=== PATIENT | female | born 1985 | race Caucasian/White ===

== ENCOUNTER 2020-09-02 21:59 | Emergency (ER) | payer SELFPAY ==
[~2020-09-02] VITALS: Ht 170.2 cm; Wt 66.7 kg
[2020-09-02 22:12] LABS: *BILIRUBIN,URIN 1+ (NEGATIVE); *BLOOD, URINE NEGATIVE (NEGATIVE); *CLARITY,URINE SLIGHTLY CLOUDY (CLEAR); *COLOR,URINE YELLOW (YELLOW); *KETONES,URINE TRACE (NEGATIVE); LEUKOCYTE ESTERASE ,URINE NEGATIVE (NEGATIVE); NITRITE, URINE NEGATIVE (NEGATIVE); PH,URINE 8.5 (5.0-8.0); UGLUCOSE NEGATIVE (NEGATIVE)
[2020-09-02 22:13] LABS: *URINE HCG, QUAL NEGATIVE (NEGATIVE)
[2020-09-02 22:18] LABS: BACTERIA,URINE FEW /HPF (NONE SEEN); RBC,URINE 0-3 /HPF (0-3); SQUAMOUS EPITHELIAL CELL,UR MODERATE /HPF (NONE SEEN)
[2020-09-02 22:19] LABS: MUCUS,URINE FEW /LPF (0-FEW); URINE AMORPHOUS PHOSPHATES MANY /HPF
[2020-09-02] MEDS ORDERED: IV NORMAL SALINE 1000 ML BAG IV ONE (22:45)
[2020-09-02] MEDS ORDERED: HYDROMORPHONE 1 MG/1 ML DISP.SYRIN IV ONE (22:45)
[2020-09-02] MEDS ORDERED: ONDANSETRON 4 MG/2 ML VIAL IV ONE (22:45)
[2020-09-02] MEDS ORDERED: KETOROLAC TROMETHAMINE 30 MG INJ IVP ONE (22:45)
[2020-09-02] MEDS ORDERED: HYDROMORPHONE 1 MG/1 ML DISP.SYRIN ONE (22:54)
[2020-09-02] MEDS ORDERED: ONDANSETRON 4 MG/2 ML VIAL ONE (22:54)
[2020-09-02] MEDS ORDERED: KETOROLAC TROMETHAMINE 30 MG INJ ONE (22:54)
--- NOTE | 2020-09-02 22:58 | NUR ---
35 y/o female presents to ED for LUQ pain x 2 days. Pain is intermittent, sharp, 9/10 (right now), radiates to her back, took vicodine with no relief. Hx of appendectomy and mediterranean fever. A&Ox4. Able to make needs known. No SI/HI. Anxious. Sinus Rhythm on monitor. BP wnls. Afebrile. Sats >94% on room air. No SOB, no labored breathing. GI/: Some nausea, no emesis. Tenderness upon palpation of effected areas.
[2020-09-02 22:59] LABS: HEMATOCRIT 28.9 % (31.2-41.9); MEAN CORPUSCULAR VOLUME 64.4 fL (75.5-95.3); PLATELET COUNT (AUTO) 234 K/uL (179-408)
[2020-09-02 23:09] LABS: BILIRUBIN,DIRECT 0.2 mg/dL (0.0-0.2); BILIRUBIN,TOTAL 0.5 mg/dL (0.2-1.0); CREATININE 0.7 mg/dL (0.6-1.3); POTASSIUM 3.8 mmol/L (3.5-5.1); TOTAL PROTEIN, SERUM 8.1 g/dL (6.4-8.2)
--- NOTE | 2020-09-02 23:39 | NUR ---
motor vehicle technician at bedside
[2020-09-02] MEDS ORDERED: IV NORMAL SALINE 250 ML IV ONE (23:43)
[2020-09-02] MEDS ORDERED: IOHEXOL 300MG/ML 100 ML INFUS..BTL ONE (23:43)
[2020-09-02] MEDS ORDERED: SWABABLE VALVE TRANSFER SET EA MC ONE (23:43)
--- NOTE | 2020-09-02 23:55 | NUR ---
Patient down for CT Abdomen w/ Contrast at this time -- consent signed - renal function wnls - negative result
[2020-09-03 00:14] LABS: LYMPHOCYTES % (MANUAL) 36 % (20-40); MONOCYTES % (MANUAL) 5 % (2-10); NEUTROPHILS % (MANUAL) 59 % (42-75)
[2020-09-03] MEDS ORDERED: HYDROMORPHONE 1 MG/1 ML DISP.SYRIN ONE (00:14)
[2020-09-03] MEDS ORDERED: TDAP DIPH,PERTUSS,TET VAC/PF 0.5 ML DISP.SYRIN IM ONE (00:15)
[2020-09-03] MEDS ORDERED: HYDROMORPHONE 1 MG/1 ML DISP.SYRIN IV ONE (00:15)
[2020-09-03] MEDS ORDERED: ONDA4TAB5 PO (00:59)
[2020-09-03] MEDS ORDERED: HYDR-4209 PO (00:59)
[2020-09-03 01:12] VITALS: BP 124/86
--- NOTE | 2020-09-03 01:13 | NUR ---
Patient discharged to home in stable condition. Written and verbal after care instructions given. Patient verbalizes understanding of instructions. Stressed follow up or return to ER for worsening s/s. VSS. Steady gait. All belongings with patient. Advised to not drive.
== END 2020-09-03 01:11 | disposition home or self-care (01) ==
LOC: ER 22:02
DX: R10.9 Unspecified abdominal pain (principal); M54.9 Dorsalgia, unspecified; R93.89 Abnormal findings on diagnostic imaging of other specified body structures; A23.9 Brucellosis, unspecified; Z84.1 Family history of disorders of kidney and ureter; Z79.899 Other long term (current) drug therapy; F17.210 Nicotine dependence, cigarettes, uncomplicated
CPT/HCPCS: 36415; 74177; 76705; 80048; 80076; 81001; 83690; 84703; 85007; 85025; 87086; 96361; 96374; 96375; 96376; 99285; 99406; J1170 ×2; J1885; J2405; Q9967; 70030-TC; 90715; J7030; J7050